=== PATIENT | male | born 1955 | race Caucasian/White ===

== ENCOUNTER 2024-07-31 04:51 | Emergency (ER) | payer OTHER ==
[~2024-07-31] VITALS: Ht 167.6 cm; Wt 76.4 kg
[2024-07-31 04:55] VITALS: O2SAT 95
[2024-07-31 05:55] LABS: CHLORIDE 89 mEq/L (98-107); INR 1.5; PROTHROMBIN TIME 15.8 sec (9.6-11.0)
[2024-07-31 05:56] LABS: CARBON DIOXIDE 23 mEq/L (21-32)
[2024-07-31 06:00] LABS: TROPONIN I HIGH SENSITIVITY 23 ng/L (3.0-53)
[2024-07-31 06:01] LABS: GLUCOSE 100 mg/dL (70-105); UREA NITROGEN BLOOD 28 mg/dL (9-23)
[2024-07-31 06:02] LABS: AMMONIA 41 uMol/L (<32)
[2024-07-31 06:03] LABS: ALANINE AMINOTRANSFERASE 66 IU/L (10-49); ALBUMIN 2.5 g/dL (3.2-4.8); ASPARTATE AMINOTRANSFERASE 86 IU/L (<34); BILIRUBIN DIRECT 2.5 mg/dL (<=3.0); BILIRUBIN TOTAL 7.7 mg/dL (0.1-1.0); PROTEIN TOTAL 5.6 g/dL (6.0-8.3)
[2024-07-31 06:30] LABS: BASOPHILS % 0.5 % (0.0-2.0); EOSINOPHILS % 5.1 % (0.0-5.0); HEMATOCRIT. 38.9 % (42.0-52.0); HEMOGLOBIN. 14.1 g/dL (14.0-18.0); LYMPHOCYTES % 10.3 % (20.0-50.0); MEAN CORPUSCULAR HEMOGLOBIN 37.7 pg (28.0-32.0); MEAN CORPUSCULAR HGB CONC 36.2 g/dL (31.0-37.0); MEAN CORPUSCULAR VOLUME 104.1 fL (80.0-94.0); MEAN PLATELET VOLUME 7.6 fl (7.4-10.4); MONOCYTES % 11.6 % (2.0-8.0); NEUTROPHILS % 72.5 % (40.0-76.0); RED BLOOD CELL COUNT 3.74 mill/uL (4.7-6.1); RED CELL DISTRIBUTION WIDTH 16.8 % (11.6-14.6); WHITE BLOOD COUNT 7.6 x1000/uL (4.5-11.0)
[2024-07-31] MEDS ORDERED: VANCOMYCIN 1G PREMIX 200 ML IV ONE (06:30)
[2024-07-31 06:31] LABS: DIFFERENTIAL COMMENT 1
[2024-07-31 06:35] LABS: LACTIC ACID 2.9 mmol/L (0.4-2.0)
[2024-07-31 06:37] LABS: SODIUM 115 mEq/L (136-145)
[2024-07-31] MEDS: PIPERACILLIN/TAZO 3.375G/50ML 50 ML IV ONE (06:47)
[2024-07-31] MEDS: SODIUM CHLORIDE 0.9% 1000ML BAG (SEPSIS BOLUS) IV ONE (06:47)
[2024-07-31] MEDS: LACTULOSE 20G/30ML UDC PO ONE (06:47)
[2024-07-31 06:48] LABS: PLATELET 97 x1000/uL (130-400)
[2024-07-31] MEDS: VANCOMYCIN 1GM PMX (XELLIA) 200 ML IV NR (07:00)
[2024-07-31 11:15] VITALS: BP 103/60; PULSE 88; RESP 17; TEMP 36.89184; O2SAT 97
[2024-07-31] MEDS ORDERED: IPRATROPIUM/ALBUTEROL 0.5-3(2.5)MG/3ML NEB HHN PRN (11:15)
[2024-07-31] MEDS ORDERED: SPIRONOLACTONE 25MG TABLET PO SCH (12:00)
[2024-07-31] MEDS ORDERED: PROPRANOLOL HCL 10MG TABLET PO SCH (12:00)
[2024-07-31] MEDS ORDERED: ONDANSETRON HCL 4MG/2ML INJ IV PRN (12:00)
[2024-07-31] MEDS ORDERED: CALCIUM 1250MG TABLET (500MG ELEMENTAL CALCIUM) PO SCH (12:00)
[2024-07-31] MEDS ORDERED: LACTULOSE 20G/30ML UDC PO SCH (12:00)
[2024-07-31] MEDS ORDERED: SUCRALFATE 1G TABLET PO SCH (13:00)
== END 2024-07-31 12:29 | disposition short-term general hospital (02) ==
LOC: EDBD 04:51 → ER 04:51 → EDBEDREQ 10:31 → ER 12:29
DX: A41.9 Sepsis, unspecified organism (principal); R65.20 Severe sepsis without septic shock; K76.82 Hepatic encephalopathy; F10.20 Alcohol dependence, uncomplicated; Z85.05 Personal history of malignant neoplasm of liver; Z79.899 Other long term (current) drug therapy
CPT/HCPCS: 99291; 96365; 70450; 96366; 80076; 80048; 82140; 83605; 83690; 85025; 85610; 87040; 84484; 36415; 71045; 93005; 96368; J3370; J2543; J7030